=== PATIENT | male | born 1950 | race Two or more races ===

== ENCOUNTER → 2016-06-15 | Outpatient (CLI) | payer OTHER ==
--- NOTE | 2016-06-16 16:40 | DX ---
2 view cervical spine - June 15, 2016 Clinical indication: Follow-up fusion. Comparison: April 28, 2016. FINDINGS: Bony alignment of the cervical spine is anatomic. There is fusion from C3 to C6 with anteri or cervical plate and 3 level with interbody disc spacers that appear to be healing. The C6-7 and C7- T1 interspaces show mild degenerative disk disease. IMPRESSION: 4 level fusion in good position from C3 to C6.
== END ==
LOC: FIMAGING 09:35
PROVIDERS: ATTEND Physician Assistant
DX: Z47.89 Encounter for other orthopedic aftercare (principal); Z98.1 Arthrodesis status

== ENCOUNTER → 2016-07-20 | Outpatient (CLI) | payer OTHER | LOC: FIMAGING 10:33 | PROVIDERS: ATTEND Physician Assistant | DX: Z47.89 Encounter for other orthopedic aftercare (principal); Z98.1 Arthrodesis status; M50.30 Other cervical disc degeneration, unspecified cervical region ==

== ENCOUNTER → 2016-08-27 | Outpatient (CLI) | payer OTHER | LOC: FIMAGING 14:27 | PROVIDERS: ATTEND Physician Assistant Surgical | DX: Z09 Encounter for follow-up examination after completed treatment for conditions other than malignant neoplasm (principal); R13.10 Dysphagia, unspecified; Z98.1 Arthrodesis status ==

== ENCOUNTER → 2016-11-04 | Outpatient (CLI) | payer OTHER | LOC: FLAB 12:59 | PROVIDERS: ATTEND Physician Assistant Surgical | DX: Z47.89 Encounter for other orthopedic aftercare (principal); M48.02 Spinal stenosis, cervical region; Z98.1 Arthrodesis status ==

== ENCOUNTER 2016-11-16 07:15 | Inpatient (IN) | payer OTHER ==
[~2016-11-16 07:15] MED LIST: CHLORHEXIDINE GLUC HIBICLENS 118 ML BTL TP ONE; ceFAZolin 2 GM/DEXTROSE 100 ML IV ONE; morphINE PF 5 MG/10 ML INJ IT ONE
[2016-11-16] MEDS ORDERED: THROMBIN (BOVINE) 20,000 UNIT VIAL TP ONE (07:34)
[2016-11-16] MEDS ORDERED: BACITRACIN 50,000 UNITS/10 ML SYR IRR ONE (07:35)
[2016-11-16] MEDS ORDERED: BUPIVACAINE/EPI 0.25% 30 ML SDV ONE (07:35)
[2016-11-16] MEDS ORDERED: PROPOFOL/EMULSION 500 MG/50 ML BOTTLE IV ONE ×7 (09:27→14:05)
[2016-11-16] MEDS ORDERED: REMIFENTANIL HCL 1 MG VIAL ONE ×7 (09:30→15:20)
[2016-11-16] MEDS ORDERED: MIDAZOLAM 2 MG/2 ML VIAL ONE (09:35)
[2016-11-16] MEDS ORDERED: HYDROmorphONE/DILAUDID 2 MG/ML INJ ONE (09:39)
[2016-11-16] MEDS ORDERED: SUCCINYLCHOLINE CHLORIDE*ANESTHESIA ONLY*200 MG/10 ML SYR IVP ONE (09:39)
--- NOTE | 2016-11-16 09:41 | PDHPUP ---
History & Physical Update H&P update statement: This history and physical update is based on an assessment of the patient which was completed after admission or registration (within 24 hours), but prior to the surgery/procedure. H&P update: H&P reviewed & patient examined, no change in patient's condition since H&P completed
--- NOTE | 2016-11-16 09:44 | PDANEPAE ---
ANE History of Present Illness 66yo M for TLIF ANE Past Medical History - Cardiovascular History Hx Hypertension: Yes Hx Arrhythmias: No Hx Chest Pain: No Hx Coronary Artery / Peripheral Vascular Disease: No Hx CHF / Valvular Disease: No Hx Palpitations: No - Pulmonary History Hx COPD: No Hx Asthma/Reactive Airway Disease: No Hx Recent Upper Respiratory Infection: No Hx Oxygen in Use at Home: No - Neurologic History Hx Cerebrovascular Accident: No Hx Seizures: No Hx Dementia: No - Endocrine History Hx Diabetes: No - Renal History Hx Renal Disorders: No - Liver History Hx Hepatic Disorders: No - Neurological & Psychiatric Hx Hx Neurological and Psychiatric Disorders: Yes - Cancer History Hx Cancer: No - Congenital Disorder History Hx Congenital Disorders: No - GI History Hx Gastrointestinal Disorders: Yes - Chronic Pain History Chronic Pain: No ANE Review of Systems Review of systems is: negative - Exercise capacity METS (RN): 4 METS ANE Patient History - Allergies Allergies/Adverse Reactions: bacitracin zinc [From Cortisporin] Allergy (Unknown, Verified 04/14/16 15:21) Other-Enter Comments hydrocortisone [From Cortisporin] Allergy (Unknown, Verified 04/14/16 15:21) Other-Enter Comments neomycin sulfate [From Cortisporin] Allergy (Unknown, Verified 04/14/16 15:21) Other-Enter Comments polymyxin B sulfate [From Cortisporin] Allergy (Unknown, Verified 04/14/16 15:21 ) Other-Enter Comments rofecoxib [From Vioxx] Allergy (Unknown, Verified 12/13/15 08:45) Other-Enter Comments hydrochlorothiazide Allergy (Verified 04/14/16 15:21) Abdominal Cramping - Home Medications Home Medications: Omeprazole [Prilosec 20 mg] 20 mg PO DAILY 12/13/15 [Last Taken 04/26/16] Ascorbic Acid [Vitamin C 500 mg (*)] 500 mg PO DAILY 04/08/16 [Last Taken ] Atorvastatin Calcium [Lipitor 20 mg (*)] 20 mg PO HS 04/08/16 [Last Taken ] Carvedilol [Coreg (*)] 37.5 mg PO BIDMEAL 04/08/16 [Last Taken 04/27/16] Herbals/Supplements -Info Only 1 ea PO DAILY 04/08/16 [Last Taken 04/13/16] Magnesium Oxide [Magnesium Oxide 400 mg (*)] 400 mg PO DAILY 04/08/16 [Last Taken 04/13/16] HYDROcodone/APAP [[place] (*)] 1 - 2 tab PO Q6HRS PRN 10/15/16 [ Last Taken Unknown] Irbesartan [Avapro 150 mg (*)] 150 mg PO DAILY 10/15/16 [Last Taken Unknown] - NPO status NPO Since - Liquids (Date): 11/15/16 NPO Since - Liquids (Time): 20:00 NPO Since - Solids (Date): 11/15/16 NPO Since - Solids (Time): 20:00 - Smoking Hx Smoking Status: Never smoked - Family Anes Hx Family Hx Anesthesia Complications: NEG ANE Labs/Vital Signs - Vital Signs Blood Pressure: 145/97 Heart Rate: 77 Respiratory Rate: 15 O2 Sat (%): 93 Height: 170.18 cm Weight: 115.666 kg ANE Physical Exam - Airway Neck exam: decreased ROM, spinal fusion, increased neck circumference Mallampati Score: Class 2 Mouth exam: normal dental/mouth exam - Pulmonary Pulmonary: clear to auscultation - Cardiovascular Cardiovascular: regular rate and rhythym - ASA Status ASA Status: III ANE Anesthesia Plan Anesthesia Plan: general endotracheal anesthesia
[2016-11-16] MEDS ORDERED: CEFAZOLIN 2 GM/DEXTROSE/100 ML BAG IV ONE (09:46)
[2016-11-16] MEDS ORDERED: epHEDrine SULFATE 10 MG/ML SYR ONE (10:08)
[2016-11-16] MEDS ORDERED: VASOPRESSIN 20 UNIT/ML VIAL ONE (10:10)
[2016-11-16] MEDS ORDERED: CITRATE DEXTROSE SOLN 500 ML BAG ONE ×2 (10:31→10:40)
[2016-11-16] MEDS ORDERED: morphINE PF 10 MG/10 ML INJ ONE (10:46)
[2016-11-16] MEDS ORDERED: ceFAZolin 1 GM/5 ML SYR ONE ×2 (10:47→15:35)
[2016-11-16] MEDS ORDERED: ALBUTEROL 3 ML DEYVIAL IH PRN (10:53)
[2016-11-16] MEDS ORDERED: LR 500 ML IV PRN (10:53)
[2016-11-16] MEDS ORDERED: HYDROmorphONE/DILAUDID 1 MG/ML SYR IVP PRN (10:53)
[2016-11-16] MEDS ORDERED: NALOXONE HCL 0.4 MG/ML INJ IVP PRN (10:53)
[2016-11-16] MEDS ORDERED: fentaNYL 100 MCG/2 ML INJ IVP PRN (10:53)
[2016-11-16] MEDS ORDERED: OXYCODONE/APAP 5/325 TAB PO PRN (10:53)
[2016-11-16] MEDS ORDERED: PROPOFOL 200 MG/20 ML VIAL ONE (14:58)
--- NOTE | 2016-11-16 16:59 | POSTANESTH ---
Post Anesthetic Evaluation Cardiovascular Status: Normal, Stable Respiratory Status: Normal, Stable Level of Consciousness/Mental Status: Can Participate in Eval Pain Control: Adequate, Prn Tx Ordered Nausea/Vomiting Control: Adequate, Prn Tx Ordered Complications Possibly Related to Anesthesia: None Noted
[2016-11-16] MEDS ORDERED: diphenhydrAMINE 25 MG CAP PO PRN (17:00)
[2016-11-16] MEDS ORDERED: PROMETHAZINE HCL 25 MG/ML INJ IVP PRN (17:00)
[2016-11-16] MEDS ORDERED: ONDANSETRON 4 MG/2 ML VIAL IVP PRN (17:00)
[2016-11-16] MEDS ORDERED: NS W/ 20 KCl/L 1,000 ML IV SCH (17:00)
[2016-11-16] MEDS ORDERED: MAGNESIUM HYDROXIDE 30 ML UDCUP PO PRN (17:00)
[2016-11-16] MEDS ORDERED: LACTULOSE 20 GM/30 ML UDCUP PO PRN (17:00)
[2016-11-16] MEDS ORDERED: ONDANSETRON DISINTEGRATING 4 MG TAB PO PRN (17:00)
[2016-11-16] MEDS ORDERED: BISACODYL 10 MG SUPP PR PRN (17:00)
--- NOTE | 2016-11-16 17:13 | POSTOPPROG ---
Post Op Note Date of Operation: 11/16/16 Surgeon: Margi Gardiner Local Superintendent: Kunal Gardiner PA-c Anesthesiologist: Patsy Anesthesia: GET(General Endotracheal) Pre-op Diagnosis: lumbar stenosis, ddd Post-op Diagnosis: same Indication: pain, radiculopathy, stenosis Procedure: L23 laminectomy, redo right L34 TLIF, L4-S1 TLIF, L2-S1 posterior fusion Findings: Please see dictated op report Inf/Abcess present in the surg proc area at time of surgery?: No Depth: Organ Space EBL: 500-1000 Complications: none Drains: Mario Hartman (x1) Specimen(s): none PA Addendum - Addendum .: S: Pt resting in bed, denies pain O: AAOx3 NAD VSS MAEx4 Motor 5/5 BUE/BLE +LT Incision dressed cdi - silver dressing in place JPx1 Isabel in A: 66 yo M s/p L23 laminectomy, redo right L34 TLIF, L4-S1 TLIF, L2-S1 posterior fusion P: PT/OT Post op xrays pending Brace when OOB TEDs, SCDs, Lovenox POD#[address] leave on for 7 days DC isabel in AM Please call NS with any issues
[2016-11-16] MEDS ORDERED: HYDROmorphONE/DILAUDID 1 MG/ML SYR ONE (17:36)
[2016-11-16] MEDS ORDERED: fentaNYL 100 MCG/2 ML INJ ONE (17:36)
[2016-11-16] MEDS: fentaNYL 100 MCG/2 ML INJ IVP PRN ×2 (17:37→17:48)
[2016-11-16] MEDS: CARVEDILOL 25 MG TAB PO SCH (18:41)
[2016-11-16] MEDS: ceFAZolin 2 GM/DEXTROSE 100 ML IV SCH (18:41)
[2016-11-16] MEDS: FAMOTIDINE 20 MG TAB PO SCH (20:04)
[2016-11-16] MEDS: METHOCARBAMOL 750 MG TAB PO PRN (20:05)
[2016-11-16] MEDS: HYDROCODONE/APAP 10/325 TAB PO PRN (20:05)
[2016-11-16] MEDS: SENNOSIDES/DOCUSATE SODIUM TAB PO SCH (20:05)
[2016-11-16] MEDS: ATORVASTATIN CALCIUM 20 MG TAB PO SCH (20:05)
[2016-11-17] MEDS: HYDROCODONE/APAP 10/325 TAB PO PRN ×5 (00:34→19:02)
[2016-11-17] MEDS: ceFAZolin 2 GM/DEXTROSE 100 ML IV SCH (02:33)
[2016-11-17] MEDS: METHOCARBAMOL 750 MG TAB PO PRN ×4 (02:36→19:03)
--- NOTE | 2016-11-17 04:38 | GOP ---
[f rep st] OPERATIVE REPORT DATE OF OPERATION: 11/16/2016 SURGEON: Prem Moss MD SEED TECHNICIAN: SAMANTA Garrido. PREOPERATIVE DIAGNOSIS: 1. L2 through S1 lumbar spondylosis. 2. L2-L3 spinal stenosis. 3. Right-sided L3-L4, L4-L5, L5-S1 foraminal and lateral recess stenosis with right lower extremity radiculopathy and weakness. 4. Low back pain. 5. Treatment refractory to nonoperative intervention. POSTOPERATIVE DIAGNOSIS: 1. L2 through S1 lumbar spondylosis. 2. L2-L3 spinal stenosis. 3. Right-sided L3-L4, L4-L5, L5-S1 foraminal and lateral recess stenosis with right lower extremity radiculopathy and weakness. 4. Low back pain. 5. Treatment refractory to nonoperative intervention. 6. Spinous process fracture of L4 and L5. PROCEDURE PERFORMED: 1. Posterior arthrodesis with approach to L2, L3, L4, L5, S1. 2. Posterolateral fusion with bilateral pedicle screw placement into L2, L3, L4 , L5, and S1 from the [employer] system. 3. Decompressive laminectomy with bilateral medial facetectomies at L2-L3. 4. Right-sided L3-L4 hemilaminotomy with facetectomy, foraminotomy, nerve root decompression. 5. Redo right-sided L4-L5 hemilaminotomy with mesial facetectomy, foraminotomy , and nerve decompression. 6. Redo right-sided L5-S1 hemilaminotomy with mesial facetectomy, foraminotomy , and nerve root decompression. 7. Right-sided L3-L4 transforaminal lumbar interbody fusion with an 8 x 20 mm titanium PEEK elevate cage filled with morselized autograft and allograft. 8. Right-sided L4-L5 transforaminal lumbar interbody fusion with a 7 x 20 mm titanium PEEK elevate cage filled with morselized autograft and allograft. 9. Right-sided L5-S1 transforaminal lumbar interbody fusion with a 7 x 20 mm titanium PEEK elevate cage filled with morselized autograft and allograft. 10. Posterolateral fusion on the left between L2 and S1 with morselized autograft and allograft. 11. Use of intraoperative 3D Stealth navigation. 12. Use of intraoperative fluoroscopy, less than 1 hour physician time. 13. Use of neuromonitoring. 14. Use of operating microscope. 15. Injection of preservative-free intrathecal narcotics. 16. Revision of midline lumbar incision and scar approximately 5.5 cm. FINDINGS: per imaging SPECIMENS: None. INDICATIONS: The patient is a 66-year-old gentleman who has had a prior decompression L5-S1 with right-sided previous L4-L5 hemilaminotomy several years ago by Dr. Loco. He did quite well, but then developed progressive low back pain with right lower extremity radiculopathy. He did have spinal stenosis L2-3, as well as severe lateral recess and foraminal stenosis on the right L3-L4, L4-L5 and L5-S1 with nerve compression. After failing nonoperative interventions and after discussion of all the risks, benefits, and treatment alternatives, we decided to proceed forth with surgery as described above. DESCRIPTION OF PROCEDURE: Patient was brought to the operating theater and underwent general endotracheal anesthesia without complications. Venodynes, DONTRELL hose and the appropriate lines were placed by Anesthesia. He was flipped prone onto the Mario table and all bony processes were inspected and padded. The lower lumbar region was prepped and draped in the usual sterile surgical fashion. A time-out was completed per protocol. The patient received antibiotics within 1 hour of incision. At this point, using lateral fluoroscopy and a spinal needle, we picked our entry point at the L2 through S1 levels. This was marked in the midline and incorporated his prior midline lumbar incision which was extended cranially. The incision was infiltrated with Marcaine with epinephrine. We marked out a fishmouth incision circumferentially around the previous incision for revision. We used a scalpel blade to create an elliptical incision around the previous incision and scar tissue which we passed off the field. The incision was then taken down with the scalpel blade. I then used the monopolar and took the incision down the midline through the lumbodorsal fascia and a subperiosteal dissection was carried out once we identify the spinous process of L2 through L5. We continued with a subperiosteal dissection on left side to the transverse processes of L2, L3, L4, L5, and S1. Care was taken to preserve the L1-2 facet joint. On the right side, the patient had a previous hemilaminotomy and central decompression at L4-5 and L5-S1 which we avoided. It was noted that the L and L5 spinous processes were both floating within the soft tissues, and he appeared to have a fracture of both L4 and L5 spinous processes. We therefore removed L4 and L5 spinous processes with the Leksell rongeur. At this point, deep retractors were placed to maintain exposure. The dissection was extremely tedious secondary to the patient's body habitus, as he had a BMI of 40. We attached the 3D Stealth navigation clamp to the spinous process of L3 and completed a 3D Stealth navigation spin. Using 3D Stealth navigation, we placed the tray delivery aide holes for the bilateral pedicle screws into L2, L3, L4, L5, and S1. All holes were manually palpated with no evidence of any cortical breaches. We then tapped and placed 5.5 x 55 mm screws bilaterally at L2, 6.5 x 55 mm screws bilaterally at L3, L4, and left L5, 6.5 x 50 mm screw on the right L5, and 7.5 x 45 mm screws bilaterally in S1. Another 3D Stealth navigation spin demonstrated good placement of the hardware. At this point, the microscope was brought into the field to assist with microscopic dissection and to maintain illumination and magnification. Using a combination of the bur tip on the drill, Kerrison punches and a Leksell rongeur, we completed a decompressive laminectomy with bilateral medial facetectomies at L2-L3. We then skived off to the right side and completed a right-sided L3-L4 hemilaminotomy with mesial facetectomy with resection of the pars and completed a foraminotomy. We moved down to L4-5 where we had to use extreme care and tedious dissection to tease the scar tissue off the medial aspect of the facet joint at L4-5 and L5-S1. At both levels, we then completed an aggressive facetectomy with resection of the pars and then completed a foraminotomy at L4- 5 and L5-S1 on the right sides. First we moved down to L5-S1, where we distracted the interspace and completed a right-sided L5-S1 diskectomy. The tissue was noted to be extremely adherent with the dura scarred down at this level. After completing a diskectomy, we prepared the cartilaginous endplates and measured the interbody space. We placed a 7 x 20 mm titanium PEEK elevate cage filled with morselized autograft and allograft anteriorly and toward the midline. We packed additional morcellized autograft into the disk space for the interbody fusion. We moved up to L4-5 where we distracted the interspace and again had to resect the scar tissue. The thecal sac was again noted to be extremely scarred down at this level. We completed a right-sided L4-5 diskectomy and prepared the cartilaginous endplates. We measured the interbody space and placed a 7 x 20 mm titanium PEEK elevate cage filled with morselized autograft and allograft anteriorly and toward the midline. We packed additional morcellized autograft into the disk space for the interbody fusion and moved it up to L3-4, where we again completed a right-sided L3-4 resection of the pars and completed a right- sided L3-4 diskectomy. We prepared the cartilaginous endplates and measured interbody space. We placed an 8 x 20 mm titanium PEEK elevate cage filled with morselized autograft and allograft anteriorly and toward the midline. We packed additional morcellized autograft in the disk space for the interbody fusion and let down the distraction. At this point we decorticated the bone on the left side between L2 and S1. We irrigated the wound copiously with bacitracin irrigation and placed 2 lordotic rods into the heads of the screws between L2 and S1 and secured them down with cap screws which were tightened per the rubber mill tender's setting. We placed morselized autograft and allograft on the left side between L2 and S1 for the posterolateral fusion and we injected preservative-free intrathecal narcotics. We left a drain in the subfascial space. The wound was then closed in multiple layers using Vicryl sutures for the deep layers and Dermabond for the skin. The patient's wounds were dressed sterilely. He was flipped supine onto the transfer cart, where he was awakened, extubated, and taken to the recovery room in stable condition. There were no complications and no noted changes on neuromonitoring throughout the procedure. COMPLICATIONS: None. Please note this surgery was greater than 50% more difficult then average secondary to the patient's body habitus and his scar tissues and revision needed. /[id number]/MODL MTDD
[2016-11-17 05:10] LABS: % IMMATURE GRANULYOCYTES 1.3 % (0.0-1.1); ABSOLUTE IMMATURE GRANULOCYTES 0.26 10^3/uL (0.00-0.10); ADD DIFF? NO; ADD MORPH? NO; ADD SCAN? NO; ATYPICAL LYMPHOCYTE FLAG 0 (0-99); FRAGMENT RBC FLAG 0 (0-99); HEMATOCRIT 39.8 % (40.0-51.0); HEMOGLOBIN 13.3 g/dL (13.7-17.5); LEFT SHIFT FLG 10 (0-99); LIPEMIA HEMOLYSIS FLAG 80 (0-99); MEAN CELL HEMOGLOBIN 32.3 pg (27.9-34.1); MEAN CELL HEMOGLOBIN CONCENTR. 33.4 g/dL (32.4-36.7); MEAN CELL VOLUME 96.6 fL (81.5-99.8); MEAN PLATELET VOLUME 10.6 fL (8.7-11.7); PLATELET CLUMPS FLAG 0 (0-99); PLATELET COUNT 166 10^3/uL (150-400); RED BLOOD CELL COUNT 4.12 10^6/uL (4.40-6.38); RED CELL DISTRIBUTION WIDTH 12.8 % (11.5-15.2)
[2016-11-17 05:21] LABS: ANION GAP 11 mEq/L (8-16); CALCIUM 8.8 mg/dL (8.5-10.4); CARBON DIOXIDE 19 mEq/l (22-31); CHLORIDE 108 mEq/L (97-110); CREATININE 1.8 mg/dL (0.7-1.3); GLOMERULAR FILTRATION RATE 38; GLUCOSE 115 mg/dL (70-100); POTASSIUM 5.8 mEq/L (3.5-5.2); SODIUM 138 mEq/L (134-144)
--- NOTE | 2016-11-17 07:50 | NEUSURGPN ---
Assessment/Plan: Assessment: 66 yo M s/p L2/3 laminectomy, redo right L3/4 TLIF, L4-S1 TLIF, L2- S1 posterior fusion POD #1 Plan: -s/p L spine surgery-pt with expected lower back pain-legs feel better -PT/OT-CPM -Post op xrays pending this am -Brace when OOB -TEDs, SCDs, Lovenox POD#1 -Silver dressing in place leave on for 7 days -DC isabel this AM -red flags reviewed -call with any questions or concerns Subjective: Awake and alert. Pt with expected lower back pain. No becerril/neck/chest/abd or gu complaints Objective: AAOx3 NAD VSS MAEx4 Motor 5/5 BUE/BLE +LT Incision dressed cdi - silver dressing in place JPx1 Isabel in-to be removed today Neuro Check Frequency: per routine Urinary Catheter in Place: Yes Urinary Catheter Indication: Other (Use Comment) (to be removed this am) Catheter Insertion Date: 11/16/16 - Physician Discussed Patient with : Isa Neurosurgery Physical Exam - Vitals, I&O, Labs I and O 11/16/16 11/17/16 11/18/16 05:59 05:59 05:59 Intake Total 3650 Output Total 2495 160 Balance 1155 -160 Weight 115.666 kg 115.666 kg Intake: Oral (ml) 530 IV Intake (ml) 1800 IV Infused (ml) 1320 NS W/ 20 KCl/L 1,000 ml @ 1100 100 mls/hr IV CONT GAIL Rx#:[id number] ceFAZolin 2 GM/DEXTROSE 220 100 ml @ 200 mls/hr IV Q8H GAIL Rx#:[id number] Output: Urine (ml) 1475 Catheter 675 Urinal 300 Estimated Blood Loss (ml) 600 DANIELLE Drain Output (ml) 420 160 Back Mario Hartman 420 160 Other: Number of Voids Urinal 1 Vital Signs Temp Pulse Resp BP Pulse Ox 36.9 C 69 15 127/76 H 93 11/17/16 07:21 11/17/16 07:21 11/17/16 07:21 11/17/16 07:21 11/17/16 07:21 Laboratory Results 11/17/16 04:49 11/17/16 04:49 ICD10 Worksheet Patient Problems: Problems Problem Status Onset CAD (coronary artery disease) Acute Hypertension Acute
[2016-11-17] MEDS: PANTOPRAZOLE SODIUM 40 MG TAB PO SCH (08:24)
[2016-11-17] MEDS: SENNOSIDES/DOCUSATE SODIUM TAB PO SCH ×2 (08:24→20:40)
[2016-11-17] MEDS: POLYETHYLENE GLYCOL 3350 17 GM PKT PO PRN (08:25)
[2016-11-17] MEDS: CARVEDILOL 25 MG TAB PO SCH ×2 (08:26→18:30)
[2016-11-17] MEDS: ASCORBIC ACID 500 MG TAB PO SCH (08:26)
[2016-11-17] MEDS: FAMOTIDINE 20 MG TAB PO SCH ×2 (08:27→20:40)
[2016-11-17] MEDS: IRBESARTAN 150 MG TAB PO SCH (08:27)
[2016-11-17] MEDS: MAGNESIUM OXIDE 400 MG TAB PO SCH (08:28)
[2016-11-17] MEDS ORDERED: NON-FORMULARY NEW DRUG (Omeprazole [Prilosec 20 Mg] 20 MG) PO SCH (09:00)
[2016-11-17] MEDS: ENOXAPARIN 40 MG/0.4 ML SYR SC SCH (09:20)
[2016-11-17] MEDS: oxyCODONE IR 5 MG TAB PO PRN ×3 (12:17→20:40)
[2016-11-17] MEDS: HYDROmorphONE/DILAUDID 1 MG/ML SYR IVP PRN (18:28)
[2016-11-17] MEDS: ATORVASTATIN CALCIUM 20 MG TAB PO SCH (20:40)
[2016-11-18] MEDS: HYDROCODONE/APAP 10/325 TAB PO PRN ×3 (01:02→17:50)
[2016-11-18] MEDS: METHOCARBAMOL 750 MG TAB PO PRN ×3 (01:02→17:50)
[2016-11-18] MEDS: oxyCODONE IR 5 MG TAB PO PRN ×2 (04:50→21:54)
[2016-11-18 05:13] LABS: HEMATOCRIT 30.4 % (40.0-51.0); HEMOGLOBIN 10.3 g/dL (13.7-17.5); MEAN CELL HEMOGLOBIN 32.7 pg (27.9-34.1); MEAN CELL HEMOGLOBIN CONCENTR. 33.9 g/dL (32.4-36.7); MEAN CELL VOLUME 96.5 fL (81.5-99.8); RED BLOOD CELL COUNT 3.15 10^6/uL (4.40-6.38); RED CELL DISTRIBUTION WIDTH 13.1 % (11.5-15.2)
[2016-11-18 05:22] LABS: ALANINE AMINOTRANSFERASE 33 IU/L (21-72); ALBUMIN 2.9 g/dL (3.5-5.0); ALKALINE PHOSPHATASE 54 IU/L (38-126); ANION GAP 9 mEq/L (8-16); ASPARTATE AMINOTRANSFERASE 38 IU/L (17-59); BILIRUBIN,TOTAL 1.7 mg/dL (0.1-1.4); CALCIUM 7.4 mg/dL (8.5-10.4); CARBON DIOXIDE 19 mEq/l (22-31); CHLORIDE 107 mEq/L (97-110); CREATININE 1.9 mg/dL (0.7-1.3); GLOMERULAR FILTRATION RATE 36; GLUCOSE 104 mg/dL (70-100); POTASSIUM 4.9 mEq/L (3.5-5.2); SODIUM 135 mEq/L (134-144)
--- NOTE | 2016-11-18 07:30 | SOAPPROG ---
SOAP Progress Note Assessment/Plan: Assessment: 66 yo male POD #1 s/p L3-S1 TLIF Pain controlled denies numbness or tingling Plan: CPM with PT/OT Continue DANIELLE drain Xrays today of L spine if pt can tolerate 11/18/16 07:28 Subjective: awake, alert, pain controlled denies any new neuro changes Objective: Vital Signs Temp Pulse Resp BP Pulse Ox 37.2 C 69 18 117/81 H 89 L 11/18/16 07:21 11/18/16 07:21 11/18/16 07:21 11/18/16 07:21 11/18/16 07:21 Laboratory Results 11/18/16 04:49 11/18/16 04:49 11/17/16 11/18/16 11/19/16 05:59 05:59 05:59 Intake Total 3650 1200 Output Total 8779 8314 60 Balance 1155 -1265 -60 Dressing: Partially saturated inferiorly DANIELLE workinml since surgery ICD10 Worksheet Patient Problems: Problems Problem Status Onset CAD (coronary artery disease) Acute Hypertension Acute
[2016-11-18] MEDS: PANTOPRAZOLE SODIUM 40 MG TAB PO SCH (08:00)
[2016-11-18] MEDS: ASCORBIC ACID 500 MG TAB PO SCH (08:00)
[2016-11-18] MEDS: FAMOTIDINE 20 MG TAB PO SCH ×2 (08:01→21:56)
[2016-11-18] MEDS: SENNOSIDES/DOCUSATE SODIUM TAB PO SCH ×2 (08:01→21:53)
[2016-11-18] MEDS: IRBESARTAN 150 MG TAB PO SCH (08:01)
[2016-11-18] MEDS: MAGNESIUM OXIDE 400 MG TAB PO SCH (08:01)
[2016-11-18] MEDS: CARVEDILOL 25 MG TAB PO SCH ×2 (08:02→21:58)
[2016-11-18] MEDS: ENOXAPARIN 40 MG/0.4 ML SYR SC SCH (08:03)
[2016-11-18] MEDS: POLYETHYLENE GLYCOL 3350 17 GM PKT PO PRN (08:10)
[2016-11-18] MEDS: HYDROmorphONE/DILAUDID 1 MG/ML SYR IVP PRN (09:09)
[2016-11-18 16:20] VITALS: RESP 16
[2016-11-18] MEDS: ATORVASTATIN CALCIUM 20 MG TAB PO SCH (21:56)
[2016-11-19] MEDS: HYDROCODONE/APAP 10/325 TAB PO PRN ×3 (00:05→21:41)
[2016-11-19] MEDS: METHOCARBAMOL 750 MG TAB PO PRN ×2 (00:10→10:31)
[2016-11-19] MEDS: ASCORBIC ACID 500 MG TAB PO SCH (08:08)
[2016-11-19] MEDS: SENNOSIDES/DOCUSATE SODIUM TAB PO SCH ×2 (08:08→21:41)
[2016-11-19] MEDS: MAGNESIUM OXIDE 400 MG TAB PO SCH (08:08)
[2016-11-19] MEDS: PANTOPRAZOLE SODIUM 40 MG TAB PO SCH (08:08)
[2016-11-19] MEDS: FAMOTIDINE 20 MG TAB PO SCH ×2 (08:08→21:40)
[2016-11-19] MEDS: oxyCODONE IR 5 MG TAB PO PRN ×2 (08:09→12:45)
[2016-11-19] MEDS: ENOXAPARIN 40 MG/0.4 ML SYR SC SCH (09:05)
[2016-11-19] MEDS: CARVEDILOL 25 MG TAB PO SCH ×2 (09:05→17:46)
[2016-11-19] MEDS: IRBESARTAN 150 MG TAB PO SCH (09:06)
--- NOTE | 2016-11-19 09:11 | NEUSURGPN ---
Assessment/Plan: Assessment: 66 yo M s/p L2/3 laminectomy, redo right L3/4 TLIF, L4-S1 TLIF, L2- S1 posterior fusion POD #3 Plan: -s/p L spine surgery-pt with expected lower back pain-legs feel better -PT/OT-CPM -Post op xrays with intact hardware -Brace when OOB -TEDs, SCDs, Lovenox POD#1 -Silver dressing in place leave on for 7 days -Continue DANIELLE drain today -call with any questions or concerns -Discussed with Dr. Moss Subjective: NAD A&OX3 MAEx4 / and equal in BUE and BLE. Dressing c/d/i Catheter Insertion Date: 11/16/16 - Physician Discussed Patient with : Isa Neurosurgery Physical Exam - Vitals, I&O, Labs I and O 11/18/16 11/19/16 11/20/16 05:59 05:59 05:59 Intake Total 1200 150 Output Total 2465 1155 Balance -1265 -1005 Weight 115.666 kg Intake: Oral (ml) 1200 150 Output: Urine (ml) 1905 900 Urinal 1905 900 DANIELLE Drain Output (ml) 560 255 Back Maroi Hartman 560 255 Other: Intake Quantity Yes Sufficient Number of Voids Urinal 1 1 Vital Signs Temp Pulse Resp BP Pulse Ox 37.1 C 64 16 97/62 L 91 L 11/19/16 07:49 11/19/16 09:05 11/19/16 07:49 11/19/16 09:06 11/19/16 07:49 Laboratory Results 11/18/16 04:49 11/18/16 04:49 ICD10 Worksheet Patient Problems: Problems Problem Status Onset CAD (coronary artery disease) Acute Hypertension Acute
[2016-11-19] MEDS: DIAZEPAM 5 MG TAB PO PRN ×2 (16:35→21:40)
[2016-11-19] MEDS: ATORVASTATIN CALCIUM 20 MG TAB PO SCH (21:40)
[2016-11-20] MEDS: METHOCARBAMOL 750 MG TAB PO PRN ×2 (05:09→10:30)
[2016-11-20] MEDS: HYDROCODONE/APAP 10/325 TAB PO PRN ×2 (05:09→12:28)
[2016-11-20 08:07] VITALS: BP 96/55; TEMP 98.5; O2SAT 96
[2016-11-20] MEDS: PANTOPRAZOLE SODIUM 40 MG TAB PO SCH (08:49)
[2016-11-20] MEDS: ASCORBIC ACID 500 MG TAB PO SCH (08:49)
[2016-11-20] MEDS: MAGNESIUM OXIDE 400 MG TAB PO SCH (08:49)
[2016-11-20] MEDS: FAMOTIDINE 20 MG TAB PO SCH (08:49)
[2016-11-20] MEDS: CARVEDILOL 25 MG TAB PO SCH (08:50)
[2016-11-20] MEDS: SENNOSIDES/DOCUSATE SODIUM TAB PO SCH (08:50)
[2016-11-20] MEDS: oxyCODONE IR 5 MG TAB PO PRN (08:50)
[2016-11-20] MEDS: ENOXAPARIN 40 MG/0.4 ML SYR SC SCH (08:51)
[2016-11-20 08:56] VITALS: PULSE 70
[2016-11-20] MEDS: IRBESARTAN 150 MG TAB PO SCH (08:59)
--- NOTE | 2016-11-20 10:46 | NEUSURGPN ---
Date of Surgery: 11/16/16 Post Op Day: 4 Assessment/Plan: Assessment: 66 yo M s/p L2/3 laminectomy, redo right L3/4 TLIF, L4-S1 TLIF, L2- S1 posterior fusion POD #4 Plan: -PT/OT-cleared for DC. -Post op xrays with intact hardware -Brace when OOB -Silver dressing in place leave on for 7 days -ashvin out today -call with any questions or concerns -DC home later today -Discussed with Dr. Moss Subjective: doing well, significant back pain but ready for DC. OBJECTIV: NAD A&OX3 MAEx4 / and equal in BUE and BLE. Dressing c/d/i Urinary Catheter in Place: No Catheter Insertion Date: 11/16/16 - Physician Discussed Patient with : Isa Neurosurgery Physical Exam - Vitals, I&O, Labs I and O 11/19/16 11/20/16 11/21/16 05:59 05:59 05:59 Intake Total 150 600 Output Total 1155 35 Balance -1005 565 Intake: Oral (ml) 150 600 Output: Urine (ml) 900 Urinal 900 ASHVIN Drain Output (ml) 255 35 Back Mario Hartman 255 35 Other: Number of Voids Toilet 1 Urinal 1 Number of Stools Toilet 1 Vital Signs Temp Pulse Resp BP Pulse Ox 36.9 C 70 16 96/55 L 96 11/20/16 08:00 11/20/16 08:50 11/20/16 08:00 11/20/16 08:50 11/20/16 08:00 Laboratory Results 11/18/16 04:49 11/18/16 04:49 ICD10 Worksheet Patient Problems: Problems Problem Status Onset CAD (coronary artery disease) Acute Hypertension Acute
== END 2016-11-20 14:25 | disposition home or self-care (01) | DRG 460 ==
LOC: F3E 08:32 → F3N 14:41
PROVIDERS: ADMIT Neurological Surgery; ATTEND Neurological Surgery
DX: M47.26 Other spondylosis with radiculopathy, lumbar region (principal); M47.27 Other spondylosis with radiculopathy, lumbosacral region; M48.06 Spinal stenosis, lumbar region; Z68.41 Body mass index [BMI] 40.0-44.9, adult
CPT/HCPCS: 97116-GP; 97161-GP; 97165-GO; C1713; C1762; G8987-GO-CI; G8988-GO-CI; G8989-GO-CI; J0330; J0690; J1170; J1650; J2250; J2274; J2704; J3010; J7060

== ENCOUNTER 2016-12-02 15:14 | Emergency (ER) | payer OTHER ==
[2016-12-02 15:29] VITALS: RESP 18; TEMP 98
[2016-12-02 15:51] LABS: HEMATOCRIT 29.4 % (40.0-51.0); MEAN CELL HEMOGLOBIN 32.5 pg (27.9-34.1); MEAN CELL VOLUME 95.5 fL (81.5-99.8); RED BLOOD CELL COUNT 3.08 10^6/uL (4.40-6.38); RED CELL DISTRIBUTION WIDTH 12.7 % (11.5-15.2)
[2016-12-02 16:00] LABS: INR 1.25 (0.83-1.16); PROTIME(PATIENT) 15.4 SEC (12.0-15.0)
[2016-12-02 16:01] LABS: APTT 34.9 SEC (23.0-38.0)
[2016-12-02 16:04] LABS: BILIRUBIN,TOTAL 0.8 mg/dL (0.1-1.4); CALCIUM 8.2 mg/dL (8.5-10.4); CREATININE 1.5 mg/dL (0.7-1.3); POTASSIUM 4.5 mEq/L (3.5-5.2); TOTAL PROTEIN 5.4 g/dL (6.3-8.2)
[2016-12-02 16:05] VITALS: PULSE 74
--- NOTE | 2016-12-02 17:06 | EDPHY ---
H & P Stated Complaint: sent by neuro to have US to R/O Rt LL DVT Time Seen by Provider: 12/02/16 15:28 HPI/ROS: 66-year-old male referred by his surgeon for right calf pain of 1 weeks duration. Review of systems General no fever no chills no weakness HEENT no eye pain no eye discharge. No eye redness, no sore throat Respiratory no cough, no shortness of breath Cardiac no chest pain, no peripheral edema GI no abdominal pain, no diarrhea, no constipation, no nausea, no vomiting no flank pain, no hematuria, no dysuria Musculoskeletal pos myalgias, no joint pain Heme no easy bruising, no easy bleeding Endo no polyuria, no polydipsia Skin no rashes, no pruritus Neuro no syncope, no dizziness, no headaches Psych is no suicidal ideation, no homicidal ideation Source: Patient, Family Exam Limitations: No limitations - Personal History Current Tetanus Diphtheria and Acellular Pertussis (TDAP): Yes - Medical/Surgical History Hx Asthma: No Hx Chronic Respiratory Disease: No Hx Diabetes: No Hx Cardiac Disease: No Hx Renal Disease: Yes Hx Cirrhosis: No Hx Alcoholism: No Hx HIV/AIDS: No Hx Splenectomy or Spleen Trauma: No Other PMH: HTN, PRATIK, CPAP, back surg x2, Bilateral shoulder rep., bilateral TSA , R ankle rep., bilateral elbow surg., bilateral hip surg, chronic renal insuf. , Cerv. fusion - Family History Significant Family History: No pertinent family hx - Social History Smoking Status: Never smoked Alcohol Use: Occasionally Drug Use: None - Physical Exam Exam: 66 yo M alert and oriented in nad non toxic appearance at,nc neck supple lungs cta bilat heart rrr abd obese , nabs soft nt ext chronic venous stasis change discoloration mild calf ttp, no erythema, trace pitting edema Constitutional: Initial Vital Signs Temperature (C) 36.6 C 12/02/16 15:26 Heart Rate 75 12/02/16 15:26 Respiratory Rate 18 12/02/16 15:26 Blood Pressure 111/60 12/02/16 15:26 O2 Sat (%) 94 12/02/16 15:26 O2 Delivery Mode Room Air Allergies/Adverse Reactions: bacitracin zinc [From Cortisporin] Allergy (Unknown, Verified 04/14/16 15:21) Other-Enter Comments hydrocortisone [From Cortisporin] Allergy (Unknown, Verified 04/14/16 15:21) Other-Enter Comments neomycin sulfate [From Cortisporin] Allergy (Unknown, Verified 04/14/16 15:21) Other-Enter Comments polymyxin B sulfate [From Cortisporin] Allergy (Unknown, Verified 04/14/16 15:21 ) Other-Enter Comments rofecoxib [From Vioxx] Allergy (Unknown, Verified 12/13/15 08:45) Other-Enter Comments hydrochlorothiazide Allergy (Verified 04/14/16 15:21) Abdominal Cramping Home Medications: Medication Instructions Recorded amLODIPine BESYLATE [Norvasc 10 mg 10 mg PO HS #30 tab 05/05/14 (*)] Omeprazole [Prilosec 20 mg] 20 mg PO DAILY 12/13/15 Ascorbic Acid [Vitamin C 500 mg 500 mg PO DAILY 04/08/16 (*)] Atorvastatin Calcium [Lipitor 20 20 mg PO HS 04/08/16 mg (*)] Carvedilol [Coreg (*)] 37.5 mg PO BIDMEAL 04/08/16 Herbals/Supplements -Info Only 1 ea PO DAILY 04/08/16 Magnesium Oxide [Magnesium Oxide 400 mg PO DAILY 04/08/16 400 mg (*)] HYDROcodone/APAP 10325 [[place] 1 - 2 tab PO Q6HRS PRN 10/15/16 10325 (*)] Irbesartan [Avapro 150 mg (*)] 150 mg PO DAILY 10/15/16 Diazepam [Valium 5 MG (*)] 5 mg PO Q6H PRN #0 tab 11/20/16 Methocarbamol [Robaxin 750 mg (*)] 750 mg PO QID PRN #0 tab 11/20/16 Sennosides/Docusate Sodium 1 - 2 tab PO BID #0 tab 11/20/16 [Senokot-S] oxyCODONE IR [Oxycodone Ir (*)] 5 - 10 mg PO Q4HRS PRN #0 tab 11/20/16 Medical Decision Making - Diagnostics Imaging Results: Imaging Impressions Extremity Venous Study 12/02/16 15:29 Impression: No evidence of deep vein thrombosis in the right lower extremity. Results called to Maddy Santiago at 5:00 PM. ED Course/Re-evaluation: Patient seen and evaluated for right calf pain. Labs Hemoglobin 10.0, patient with recent surgery No elevated white blood cell count Ultrasound of right lower extremity negative for DVT Impression Calf pain negative for DVT Plan Follow-up with PCP - Data Points Laboratory Results: Laboratory Results 12/02/16 15:45 12/02/16 15:45 12/02/16 12/02/16 12/02/16 Unknown 15:45 15:45 WBC RBC Hgb Hct MCV MCH MCHC RDW Plt Count PT 15.4 SEC H SEC (12.0-15.0) INR 1.25 H (0.83-1.16) APTT 34.9 SEC SEC (23.0-38.0) Sodium 137 mEq/L mEq/L (134-144) Potassium 4.5 mEq/L mEq/L (3.5-5.2) Chloride 101 mEq/L mEq/L (97-110) Carbon Dioxide 26 mEq/l mEq/l (22-31) Anion Gap 10 mEq/L mEq/L (8-16) BUN 25 mg/dL H mg/dL (7-23) Creatinine 1.5 mg/dL H mg/dL (0.7-1.3) Estimated GFR 47 Glucose 95 mg/dL mg/dL (70-100) Calcium 8.2 mg/dL L mg/dL (8.5-10.4) Magnesium 1.9 mg/dL mg/dL (1.6-2.3) Total Bilirubin 0.8 mg/dL mg/dL (0.1-1.4) AST 22 IU/L IU/L (17-59) ALT 42 IU/L IU/L (21-72) Alkaline Phosphatase 137 IU/L H IU/L (38-126) Total Protein 5.4 g/dL L g/dL (6.3-8.2) Albumin 3.0 g/dL L g/dL (3.5-5.0) 12/02/16 15:45 WBC 7.14 10^3/uL 10^3/uL (3.80-9.50) RBC 3.08 10^6/uL L 10^6/uL (4.40-6.38) Hgb 10.0 g/dL L g/dL (13.7-17.5) Hct 29.4 % L % (40.0-51.0) MCV 95.5 fL fL (81.5-99.8) MCH 32.5 pg pg (27.9-34.1) MCHC 34.0 g/dL g/dL (32.4-36.7) RDW 12.7 % % (11.5-15.2) Plt Count 234 10^3/uL 10^3/uL (150-400) PT INR APTT Sodium Potassium Chloride Carbon Dioxide Anion Gap BUN Creatinine Estimated GFR Glucose Calcium Magnesium Total Bilirubin AST ALT Alkaline Phosphatase Total Protein Albumin Departure - Departure Disposition: Home, Routine, Self-Care Clinical Impression: Right calf pain Condition: Good Instructions: Leg Pain (ED) Referrals: Scar Carney, [Primary Care Provider] - As per Instructions
[2016-12-02 17:42] VITALS: BP 110/62; O2SAT 90
== END 2016-12-02 17:40 | disposition home or self-care (01) ==
LOC: CED 15:14
DX: M79.604 Pain in right leg (principal); I10 Essential (primary) hypertension
CPT/HCPCS: 80053-PO; 83735-PO; 85027-PO; 85610-PO; 85730-PO; 93971-PO

== ENCOUNTER → 2016-12-27 | Outpatient (CLI) | payer OTHER | LOC: FIMAGING 16:40 | PROVIDERS: ATTEND Physician Assistant | DX: Z98.1 Arthrodesis status (principal) ==

== ENCOUNTER → 2017-02-09 | Outpatient (CLI) | payer OTHER | LOC: FIMAGING 13:43 | PROVIDERS: ATTEND Physician Assistant | DX: Z09 Encounter for follow-up examination after completed treatment for conditions other than malignant neoplasm (principal); Z98.1 Arthrodesis status ==

== ENCOUNTER 2017-03-11 19:01 | Emergency (ER) | payer OTHER ==
--- NOTE | 2017-03-11 19:13 | EDPHY ---
H & P Stated Complaint: Left foot bleeding varicosity Time Seen by Provider: 03/11/17 19:09 HPI/ROS: CHIEF COMPLAINT: Bleeding HISTORY OF PRESENT ILLNESS: The patient is a 66-year-old overweight man with lower leg varicose sees. Tonight he was putting on lotion when he caused some bleeding behind his left medial malleolus. His wrapped with paper towels and brought him to the emergency department. He denies other injuries. He denies lightheadedness. He is ambulatory. REVIEW OF SYSTEMS: Constitutional: denies: chills, fever, recent illness, recent injury EENTM: denies: blurred vision, double vision, nose congestion Respiratory: denies: cough, shortness of breath Cardiac: denies: chest pain, irregular heart rate, lightheadedness, palpitations Gastrointestinal/Abdominal: denies: abdominal pain, diarrhea, nausea, vomiting, blood streaked stools Genitourinary: denies: dysuria, frequency, hematuria, pain Musculoskeletal: denies: joint pain, muscle pain Skin: See HPI Neurological: denies: headache, numbness, paresthesia, tingling, dizziness, weakness Hematologic/Lymphatic: denies: blood clots, easy bleeding, easy bruising Immunologic/allergic: denies: HIV/AIDS, transplant EXAM: GENERAL: Well-appearing, well-nourished and in no acute distress. HEAD: Atraumatic, normocephalic. EYES: Pupils equal round and reactive to light, extraocular movements intact, sclera anicteric, conjunctiva are normal. ENT: TMs normal, nares patent, oropharynx clear without exudates. Moist mucous membranes. NECK: Normal range of motion, supple without lymphadenopathy or JVD. LUNGS: Breath sounds clear to auscultation bilaterally and equal. No wheezes rales or rhonchi. HEART: Regular rate and rhythm without murmurs, rubs or gallops. ABDOMEN: Soft, nontender, normoactive bowel sounds. No guarding, no rebound. No masses appreciated. BACK: No CVA tenderness, no spinal tenderness, step-offs or deformities EXTREMITIES: Normal range of motion, no pitting or edema. No clubbing or cyanosis. NEUROLOGICAL: Cranial nerves II through XII grossly intact. Normal speech, normal gait. 5/5 strength, normal movement in all extremities, normal sensation PSYCH: Normal mood, normal affect. SKIN: Small laceration to left ankle behind medial malleolus. Bleeding controlled. Source: Patient Exam Limitations: No limitations - Personal History Current Tetanus/Diphtheria Vaccine: Yes Current Tetanus Diphtheria and Acellular Pertussis (TDAP): Yes - Medical/Surgical History Hx Asthma: No Hx Chronic Respiratory Disease: No Hx Diabetes: No Hx Cardiac Disease: No Hx Renal Disease: Yes Hx Cirrhosis: No Hx Alcoholism: No Hx HIV/AIDS: No Hx Splenectomy or Spleen Trauma: No Other PMH: HTN, PRATIK, CPAP, back surg x2, Bilateral shoulder rep., bilateral TSA , R ankle rep., bilateral elbow surg., bilateral hip surg, chronic renal insuf. , Cerv. fusion - Family History Significant Family History: No pertinent family hx - Social History Smoking Status: Never smoked Alcohol Use: Sober Drug Use: None Constitutional: Initial Vital Signs Temperature (C) 36.9 C 03/11/17 19:15 Heart Rate 80 03/11/17 19:15 Respiratory Rate 18 03/11/17 19:15 Blood Pressure 149/92 H 03/11/17 19:15 O2 Sat (%) 98 03/11/17 19:15 O2 Delivery Mode Room Air Allergies/Adverse Reactions: bacitracin zinc [From Cortisporin] Allergy (Unknown, Verified 03/11/17 19:09) Other-Enter Comments hydrocortisone [From Cortisporin] Allergy (Unknown, Verified 03/11/17 19:09) Other-Enter Comments neomycin sulfate [From Cortisporin] Allergy (Unknown, Verified 03/11/17 19:09) Other-Enter Comments polymyxin B sulfate [From Cortisporin] Allergy (Unknown, Verified 03/11/17 19:09 ) Other-Enter Comments rofecoxib [From Vioxx] Allergy (Unknown, Verified 03/11/17 19:09) Other-Enter Comments hydrochlorothiazide Allergy (Verified 03/11/17 19:09) Abdominal Cramping Home Medications: Medication Instructions Recorded amLODIPine BESYLATE [Norvasc 10 mg 10 mg PO HS #30 tab 05/05/14 (*)] Omeprazole [Prilosec 20 mg] 20 mg PO DAILY 12/13/15 Ascorbic Acid [Vitamin C 500 mg 500 mg PO DAILY 04/08/16 (*)] Atorvastatin Calcium [Lipitor 20 20 mg PO HS 04/08/16 mg (*)] Carvedilol [Coreg (*)] 37.5 mg PO BIDMEAL 04/08/16 Herbals/Supplements -Info Only 1 ea PO DAILY 04/08/16 Magnesium Oxide [Magnesium Oxide 400 mg PO DAILY 04/08/16 400 mg (*)] HYDROcodone/APAP [[place] 1 - 2 tab PO Q6HRS PRN 10/15/16 (*)] Irbesartan [Avapro 150 mg (*)] 150 mg PO DAILY 10/15/16 Diazepam [Valium 5 MG (*)] 5 mg PO Q6H PRN #0 tab 11/20/16 Methocarbamol [Robaxin 750 mg (*)] 750 mg PO QID PRN #0 tab 11/20/16 Sennosides/Docusate Sodium 1 - 2 tab PO BID #0 tab 11/20/16 [Senokot-S] oxyCODONE IR [Oxycodone Ir (*)] 5 - 10 mg PO Q4HRS PRN #0 tab 11/20/16 Atorvastatin Calcium 03/11/17 Carvedilol 37.5 mg PO BID 03/11/17 Medical Decision Making ED Course/Re-evaluation: The patient's wound was cleaned and dressed with Surgicel and Coban. We discussed instructions for home care and returning to the emergency department. We also discussed follow-up. He is for happy with this and declines further workup or testing. Differential Diagnosis: Partial list of the Differential diagnosis considered include but were not limited to; bleeding varicose, puncture wound, laceration and although unlikely based on the history and physical exam, I also considered cellulitis, foreign body, fracture. I discussed these differential diagnoses and the plan with the patient as well as the usual and expected course. The patient understands that the diagnosis is provisional and that in medicine we are not always correct and that further workup is often warranted. Usual and customary warnings were given. All of the patient's questions were answered. The patient was instructed to return to the emergency department should the symptoms at all worsen or return, otherwise to followup with the physician as we discussed. Departure - Departure Disposition: Home, Routine, Self-Care Clinical Impression: Laceration, Varicose vein of leg Condition: Fair Instructions: Laceration (ED), Varicose Veins (ED) Referrals: Leidy Navarro MD [place] [place] - As per Instructions
[2017-03-11 19:19] VITALS: BP 149/92; PULSE 80; RESP 18; TEMP 98.4; O2SAT 98
== END 2017-03-11 19:24 | disposition home or self-care (01) ==
LOC: CED 19:01
DX: I83.92 Asymptomatic varicose veins of left lower extremity (principal); S91.012A Laceration without foreign body, left ankle, initial encounter; I10 Essential (primary) hypertension; X58.XXXA Exposure to other specified factors, initial encounter

== ENCOUNTER → 2017-11-21 | Outpatient (CLI) | payer OTHER | LOC: FLAB 09:05 | PROVIDERS: ATTEND Physician Assistant Surgical | DX: M53.3 Sacrococcygeal disorders, not elsewhere classified (principal); Z98.1 Arthrodesis status; Z96.643 Presence of artificial hip joint, bilateral ==

== ENCOUNTER 2018-01-26 05:24 | Observation (INO) | payer OTHER ==
--- NOTE | 2018-01-20 08:22 | PDGENHP ---
History & Physical Chief Complaint: hx of colon polyps History of Present Illness: pt with pmhx of colon polyps Pertinent Past, Social, Family History: prior hx of polyps, obesity, sleep apnea Relevant Physical Exam: obese. RRR. CTA. soft NTND. no edema Cardiorespiratory Assessment: Stable for sedation with anesthesia. plan colonoscopy
[2018-01-26] MEDS ORDERED: ACETAMINOPHEN 500 MG TAB PO ONE (06:09)
[2018-01-26] MEDS ORDERED: GABAPENTIN 300 MG CAP PO ONE (06:09)
[2018-01-26] MEDS ORDERED: ceFAZolin 2 GM/DEXTROSE 100 ML IV ONE (06:09)
[2018-01-26] MEDS ORDERED: LR 1,000 ML IV ONE (06:10)
[2018-01-26] MEDS ORDERED: BUPIVACAINE 0.25% 30 ML SDV ONE ×2 (06:19→08:13)
[2018-01-26] MEDS ORDERED: SURGIFLO MATRIX KIT WITH THROMBIN 8 ML TP ONE ×2 (06:19→08:24)
[2018-01-26] MEDS ORDERED: CHLORHEXIDINE GLUC HIBICLENS 118 ML BTL TP ONE (06:19)
[2018-01-26] MEDS ORDERED: EPINEPHrine 1 MG/ML INJ ONE ×2 (06:21→08:13)
[2018-01-26] MEDS ORDERED: BACITRACIN 50,000 UNITS/10 ML SYR IRR ONE (06:21)
[2018-01-26] MEDS ORDERED: NALOXONE HCL 0.4 MG/ML INJ IVP PRN (06:33)
[2018-01-26] MEDS ORDERED: fentaNYL 100 MCG/2 ML INJ IVP PRN (06:33)
[2018-01-26] MEDS ORDERED: HYDROmorphONE/DILAUDID 1 MG/ML INJ IVP PRN (06:33)
[2018-01-26] MEDS ORDERED: ALBUTEROL 3 ML DEYVIAL IH PRN (06:33)
[2018-01-26] MEDS ORDERED: MIDAZOLAM 2 MG/2 ML VIAL IVP ONE (06:33)
[2018-01-26] MEDS ORDERED: ACETAMINOPHEN 500 MG TAB PO PRN (06:33)
[2018-01-26] MEDS ORDERED: ONDANSETRON 4 MG/2 ML VIAL IVP PRN ×2 (06:33→11:17)
[2018-01-26] MEDS ORDERED: HYDROCODONE/APAP 5/325 TAB PO PRN (06:33)
[2018-01-26] MEDS ORDERED: oxyCODONE IR 5 MG TAB PO PRN ×2 (06:33→09:14)
[2018-01-26] MEDS ORDERED: DEXAMETHASONE 4 MG/ML VIAL IVP PRN (06:33)
[2018-01-26] MEDS ORDERED: NS 500 ML IV PRN (06:33)
--- NOTE | 2018-01-26 06:36 | PDANEPAE ---
ANE History of Present Illness SI Fusion ANE Past Medical History - Cardiovascular History Hx Hypertension: Yes Hx Arrhythmias: No Hx Chest Pain: No Hx Coronary Artery / Peripheral Vascular Disease: No Hx CHF / Valvular Disease: No Hx Palpitations: No Cardiovascular History Comment: last heart cath: mild CAD - Pulmonary History Hx COPD: No Hx Asthma/Reactive Airway Disease: No Hx Recent Upper Respiratory Infection: No Hx Oxygen in Use at Home: No Hx Sleep Apnea: Yes Sleep Apnea Screening Result - Last Documented: Positive Pulmonary History Comment: URI- Jan-on antibx. PRATIK - uses CPAP. - Neurologic History Hx Cerebrovascular Accident: No Hx Seizures: No Hx Dementia: No - Endocrine History Hx Diabetes: No - Renal History Hx Renal Disorders: No - Liver History Hx Hepatic Disorders: No - Neurological & Psychiatric Hx Hx Neurological and Psychiatric Disorders: Yes Neurological / Psychiatric History Comment: cervical spinal stenosis, neck pain and stiffness,pain in shoulder blade. R arm pain,bilat hand numbess. - Cancer History Hx Cancer: No - Congenital Disorder History Hx Congenital Disorders: No - GI History Hx Gastrointestinal Disorders: Yes Gastrointestinal History Comment: GERD - Other Health History Other Health History: DVT AT AGE 21 - Chronic Pain History Chronic Pain: No - Surgical History Prior Surgeries: R ankle reconstructin,Bilat elbow sx, Bilat total hips, ptyrigium, Bilat shoulder sx, UPPP, Bilat wrist sx, tonsillectomy. ANE Review of Systems Review of Systems: - Exercise capacity METS (RN): 4 METS ANE Patient History - Allergies Allergies/Adverse Reactions: bacitracin zinc [From Cortisporin] Allergy (Unknown, Verified 03/11/17 19:09) Other-Enter Comments neomycin sulfate [From Cortisporin] Allergy (Unknown, Verified 01/05/18 10:12) EAR PAIN polymyxin B sulfate [From Cortisporin] Allergy (Unknown, Verified 03/11/17 19:09 ) Other-Enter Comments rofecoxib [From Vioxx] Allergy (Unknown, Verified 01/05/18 10:12) JOINT PAIN blueberry Allergy (Verified 01/05/18 10:12) Anaphylaxis hydrochlorothiazide Allergy (Verified 03/11/17 19:09) Abdominal Cramping hydrocortisone [From Cortisporin] Adverse Reaction (Unknown, Verified 01/26/18 06:25) Other-Enter Comments - Home Medications Home Medications: Omeprazole [Prilosec 20 mg] 20 mg PO DAILY 12/13/15 [Last Taken 01/26/18 05:00] Ascorbic Acid [Vitamin C 500 mg (*)] 500 mg PO DAILY 04/08/16 [Last Taken ] Carvedilol [Coreg (*)] 37.5 mg PO BIDMEAL 04/08/16 [Last Taken 01/26/18 05:00] Herbals/Supplements -Info Only 1 ea PO DAILY 04/08/16 [Last Taken 01/21/18] Magnesium Oxide [Magnesium Oxide 400 mg (*)] 400 mg PO DAILY 04/08/16 [Last Taken 01/21/18] Irbesartan [Avapro 150 mg (*)] 150 mg PO DAILY 10/15/16 [Last Taken 01/26/18 05: 00] Atorvastatin Calcium DAILY 03/11/17 [Last Taken 01/25/18] Calcium Carbonate/Vitamin D3 [Calcium 600-Vit D3 800 Tablet] 01/20/18 [Last Taken 01/21/18] Hydrocodone-Acetamin 10-325 mg PRN 01/20/18 [Last Taken 01/25/18] Celebrex 200 mg BID 01/26/18 [Last Taken 01/05/18] - Smoking Hx Smoking Status: Never smoked - Family Anes Hx Family Hx Anesthesia Complications: NEG ANE Labs/Vital Signs - Vital Signs Height: 170.18 cm Weight: 120.202 kg ANE Physical Exam - Airway Neck exam: FROM Mallampati Score: Class 2 Mouth exam: normal dental/mouth exam - Pulmonary Pulmonary: clear to auscultation - Cardiovascular Cardiovascular: regular rate and rhythym - ASA Status ASA Status: III ANE Anesthesia Plan Anesthesia Plan: general endotracheal anesthesia
--- NOTE | 2018-01-26 06:51 | PDHPUP ---
History & Physical Update H&P update statement: This history and physical update is based on an assessment of the patient which was completed after admission or registration (within 24 hours), but prior to the surgery/procedure. H&P update: H&P reviewed & patient examined, no change in patient's condition since H&P completed (Consents signed and site marked. All questions answered.)
[2018-01-26] MEDS ORDERED: PROPOFOL/EMULSION 500 MG/50 ML BOTTLE IV ONE ×3 (07:08)
[2018-01-26] MEDS ORDERED: fentaNYL 100 MCG/2 ML INJ ONE (07:11)
[2018-01-26] MEDS ORDERED: REMIFENTANIL HCL 2 MG VIAL ONE (07:12)
[2018-01-26] MEDS ORDERED: REMIFENTANIL HCL 1 MG VIAL ONE (07:13)
[2018-01-26] MEDS ORDERED: SUCCINYLCHOLINE CHLORIDE 200 MG/10 ML SYR IVP ONE (07:13)
[2018-01-26] MEDS ORDERED: ePHEDrine SULFATE 25 MG/5 ML SYR ONE (07:37)
[2018-01-26] MEDS ORDERED: ceFAZolin 1 GM VIAL ONE (07:40)
[2018-01-26] MEDS ORDERED: GENTAMICIN SULFATE 80 MG/2 ML VIAL ONE (07:42)
[2018-01-26] MEDS ORDERED: VASOPRESSIN 20 UNIT/ML VIAL ONE (07:42)
[2018-01-26] MEDS ORDERED: TRANEXAMIC ACID 1,000 MG in NS 100 ML IV ONE (08:02)
[2018-01-26] MEDS ORDERED: DEXAMETHASONE 4 MG/ML VIAL ONE (08:34)
[2018-01-26] MEDS ORDERED: ONDANSETRON 4 MG/2 ML VIAL ONE (08:34)
[2018-01-26] MEDS ORDERED: RANITIDINE 50 MG/2 ML VIAL ONE (08:34)
[2018-01-26] MEDS ORDERED: METHOCARBAMOL 1,000 MG in NS 50 ML IV ONE (09:14)
--- NOTE | 2018-01-26 09:21 | POSTOPPROG ---
Post Op Note Date of Operation: 01/26/18 Surgeon: Prem Moss Pillowcase Sewer: DASH Donahue, PAC Anesthesia: GET(General Endotracheal) Pre-op Diagnosis: SI joint dysfunction Post-op Diagnosis: SI joint dysfunction Indication: SI joint dysfunction Procedure: Bilateral SI joint fusion Inf/Abcess present in the surg proc area at time of surgery?: No EBL: Minimal PA Addendum - Addendum .: S: gluteal site pain O: NAD A&Ox3 MAEx4 5/5 and equal in BUE and BLE A/P 67 y/o male s/p bilateral SI joint fusions -Advance diet as tolerated -Optimize pain management -post op SI joint xrays pending -September d/c home when meets PACU criteria
--- NOTE | 2018-01-26 09:53 | GOP ---
[f rep st] OPERATIVE REPORT DATE OF OPERATION: 01/26/2018 SURGEON: Prem Moss MD [employer]OURER: SAMANTA Portillo. ANESTHESIA: General. PREOPERATIVE DIAGNOSIS: 1. Bilateral sacroiliac joint dysfunction. 2. Treatment refractory to nonprevention. POSTOPERATIVE DIAGNOSIS: 1. Bilateral sacroiliac joint dysfunction. 2. Treatment refractory to nonprevention. PROCEDURE PERFORMED: 1. Minimally invasive left-sided sacroiliac joint fusion with 2 12 x 50 mm Medtronic Sparta cage filled with morselized allograft. 2. Minimally invasive right-sided sacroiliac joint fusion with a 12 x 60 and 12 x 40 mm Medtronic Sparta cage filled with morselized allograft. 3. Use of intraoperative 3D Stealth Navigation. 4. Use of intraoperative fluoroscopy, less than 1 hour physician time. 5. Use neuromonitoring. FINDINGS: per imaging SPECIMENS: None. ESTIMATED BLOOD LOSS: 10 mL. INDICATIONS: The patient is a 67-year-old gentleman with a known history of degenerative disk disease in his lumbar spine for which he has undergone multiple spinal fusions. He presented with sacroiliac joint dysfunction, bilaterally. He failed nonoperative intervention. After discussion of the risks, benefits, and treatment alternatives, we decided to proceed forth with surgery as described above. DESCRIPTION OF PROCEDURE: The patient was brought to the operating theater and underwent general endotracheal anesthesia without complications. He had Venodynes, DONTRELL hose and the appropriate lines placed by Anesthesia. He was flipped prone onto a Mario table. All bony processes inspected and padded. The lower lumbar region and pelvic area were then prepped and draped in usual sterile surgical fashion. We identified the left-sided posterior superior iliac spine. We made a small incision after infiltrating the skin with Marcaine with epinephrine. The incision was taken down with the scalpel blade. We then placed percutaneous pin in the left posterior superior iliac spine. We completed a 3D Stealth Navigation spin. Using 3D Navigation, we then picked our entry point that would give us the best approach across the left and on the right sacroiliac joints. Mica Spreader holes were then drilled, tapped and measured. We then placed two 12 x 50 mm Sparta cages filled with morselized allograft across the left-sided sacroiliac joint. We then placed a 12 x 16 and 12 x 40 mm Medtronic Sparta cage filled with morselized allograft across the right-sided sacroiliac joint using the 3D navigation system. We completed another 3D Stealth Navigation spin which demonstrated excellent placement of the hardware. The percutaneous pin was removed and wounds irrigated copiously with gentamicin irrigation. The wounds were then closed in multiple layers using Vicryl sutures for the deep layers and Dermabond for the skin. The patient's wounds were dressed sterilely. He was then flipped supine onto the transfer cart where he was awakened, extubated , taken to the recovery room in stable condition. There were no complications and no noted changes on neuromonitoring throughout the procedure. COMPLICATIONS: None. /[id number]/MODL MTDD
--- NOTE | 2018-01-26 10:25 | POSTANESTH ---
Post Anesthetic Evaluation Cardiovascular Status: Other, See Comment Respiratory Status: Requires Airway Assist Level of Consciousness/Mental Status: Can Participate in Eval, Mildly Sleepy, Arousable Pain Control: Adequate, Prn Tx Ordered Nausea/Vomiting Control: Adequate, Prn Tx Ordered Complications Possibly Related to Anesthesia: None Noted (Slow emergence and bradycardic to 30's then glyco, requiring BiPap support, with improving alertness and orientation, 12-lead EKG Normal and pt moving all 4 extremities.)
[2018-01-26] MEDS ORDERED: FLUMAZENIL 0.5 MG/5 ML MDV IVP PRN (10:36)
[2018-01-26] MEDS ORDERED: FLUMAZENIL 0.5 MG/5 ML MDV IVP ONE (11:00)
[2018-01-26] MEDS ORDERED: MAGNESIUM HYDROXIDE 30 ML UDCUP PO PRN (11:17)
[2018-01-26] MEDS ORDERED: BISACODYL 10 MG SUPP PR PRN (11:17)
[2018-01-26] MEDS ORDERED: LACTULOSE 20 GM/30 ML UDCUP PO PRN (11:17)
[2018-01-26] MEDS ORDERED: POLYETHYLENE GLYCOL 3350 17 GM PKT PO PRN (11:17)
[2018-01-26] MEDS ORDERED: METHOCARBAMOL 750 MG TAB PO PRN (11:17)
[2018-01-26] MEDS ORDERED: diphenhydrAMINE 25 MG CAP PO PRN (11:17)
[2018-01-26] MEDS ORDERED: ONDANSETRON DISINTEGRATING 4 MG TAB PO PRN (11:17)
[2018-01-26] MEDS ORDERED: HYDROCODONE/APAP 10/325 TAB PO PRN (11:20)
[2018-01-26 12:57] VITALS: BP 140/92
[2018-01-26] MEDS ORDERED: ACETAMINOPHEN 500 MG TAB PO SCH (14:00)
[2018-01-26] MEDS ORDERED: ceFAZolin 2 GM/DEXTROSE 100 ML IV SCH (14:00)
--- NOTE | 2018-01-26 16:01 | GCON ---
[f rep st] CONSULTATION REASON FOR CONSULTATION: Hypoxemia postoperatively. HISTORY OF PRESENT ILLNESS: Mr. Andre is a very pleasant 67-year-old male with extensive p ast medical history including morbid obesity, severe obstructive sleep apnea, coronary artery disease . He underwent SI joint fusion. Postoperatively, he remained somnolent and hypoxemic. In discussio n, the patient states overall he feels quite well and wishes to be discharged home. He denies any ch est pain, pleuritic-type chest pain or angina equivalent. There is no fever or night sweats. He den ies any cough or production of sputum. He states he uses his CPAP machine for his obstructive sleep apnea religiously. REVIEW OF SYSTEMS: 10-point review of systems is performed and negative except for what is listed in HPI. PAST MEDICAL HISTORY: Significant for obesity, severe obstructive sleep apnea, coronary artery disea se. SOCIAL HISTORY: No history of tobacco use. Infrequent alcohol use. He is , has excellent [facility] support. FAMILY HISTORY: Noncontributory. MEDICATIONS: At home include Prilosec, vitamin C, Coreg, Avapro, magnesium oxide, calcium carbonate, and Celebrex. PHYSICAL EXAM: VITAL SIGNS: Blood pressure is 140/92, pulse 61, respirations 15. He is afebrile. Oxygen saturation 98% on room air when awake; however, when patient sleeps, his oxygen saturation miguel a ps to 72%. GENERAL: He is morbidly obese but a very pleasant 67-year-old male who is resti ng comfortably in no acute distress. HEENT: Eyes MONSERRAT, EOMI. Throat shows no erythema or tonsillar hypertrophy. NECK: Supple. No cervical adenopathy. HEART: Regular rate and rhythm without murmu rs, rubs, gallops. LUNGS: Clear to auscultation, no wheeze or rhonchi. ABDOMEN: Soft, nontender. Bowel sounds present in all 4 quadrants. EXTREMITIES: No clubbing, cyanosis, or edema. LABORATORIES: There are no laboratories to review. IMPRESSION: 1. Chronic back pain. 2. Status post SI joint fusion. 3. Severe obstructive sleep apnea. 4. Hypoxemia, is likely secondary to anesthetic as well as his severe sleep apnea. RECOMMENDATIONS: 1. Patient is stable for discharge home from a pulmonary and critical care standpoint. 2. Patient is recommended to use his CPAP machine whenever he falls asleep even when taking naps. 3. Adequate pain control. 4. Early ambulation. /[id number]/MODL
[2018-01-26] MEDS ORDERED: FAMOTIDINE 20 MG TAB PO SCH (21:00)
[2018-01-26] MEDS ORDERED: SENNOSIDES/DOCUSATE SODIUM TAB PO SCH (21:00)
[2018-01-27] MEDS ORDERED: ENOXAPARIN 40 MG/0.4 ML SYR SC SCH (09:00)
--- NOTE | 2018-01-27 15:55 | CPEKG ---
Test Reason : OPEN Blood Pressure : / mmHG Vent. Rate : 050 BPM Atrial Rate : 050 BPM P-R Int : 156 ms QRS Dur : 112 ms QT Int : 469 ms P-R-T Axes : -12 065 054 degrees QTc Int : 428 ms Sinus bradycardia Confirmed by Juan Hector ([id number]) on 01/27/2018 3:55:35 PM Referred By: Confirmed By:Juan Hector
== END 2018-01-26 16:29 | disposition home or self-care (01) ==
LOC: F3N 05:24 → F2N 12:42
PROVIDERS: ADMIT Neurological Surgery; ATTEND Neurological Surgery
PROC: [UNRECOGNIZED PROCEDURE] (principal; 2018-01-26 07:15)
PROC: 0SG Lower Joints, Fusion (ICD-10-PCS; principal; 2018-01-26 07:15)
DX: M46.1 Sacroiliitis, not elsewhere classified (principal); R09.02 Hypoxemia; G47.33 Obstructive sleep apnea (adult) (pediatric)
CPT/HCPCS: 27279; 76001; 93005; C1713; J0171; J0330; J0690; J1100; J1580; J2250; J2405; J2704; J2780; J2800; J3010

== ENCOUNTER → 2018-03-17 | Outpatient (CLI) | payer OTHER | LOC: FIMAGING 13:41 | PROVIDERS: ATTEND Neurological Surgery | DX: M46.1 Sacroiliitis, not elsewhere classified (principal) ==

== ENCOUNTER → 2018-04-06 | Outpatient (CLI) | payer OTHER | LOC: CIMAGING 15:55 | PROVIDERS: ATTEND Family Medicine | DX: M79.662 Pain in left lower leg (principal); M79.89 Other specified soft tissue disorders; Z86.718 Personal history of other venous thrombosis and embolism | CPT/HCPCS: 93971-PO ==

== ENCOUNTER → 2018-07-16 | Outpatient (CLI) | payer OTHER | LOC: FIMAGING 11:16 | PROVIDERS: ATTEND Physician Assistant | DX: M50.323 Other cervical disc degeneration at C6-C7 level (principal); M53.3 Sacrococcygeal disorders, not elsewhere classified; Z98.1 Arthrodesis status ==

== ENCOUNTER → 2018-09-07 | Outpatient (CLI) | payer OTHER | LOC: CIMAGING 10:20 | PROVIDERS: ATTEND Neurological Surgery | DX: Z98.1 Arthrodesis status (principal); M47.892 Other spondylosis, cervical region | CPT/HCPCS: 72125-PO ==